=== PATIENT | male | born 1990 | race American Indian/Alaskan Native ===

== ENCOUNTER 2016-09-29 23:03 | Emergency (ER) | payer SELFPAY ==
[2016-09-29 23:43] VITALS: BP 152/86
== END 2016-09-29 23:55 | disposition left against medical advice (07) ==
LOC: ED 23:03
DX: R51 Headache (principal); M54.5 Low back pain; V49.9XXA Car occupant (driver) (passenger) injured in unspecified traffic accident, initial encounter; W22.11XA Striking against or struck by driver side automobile airbag, initial encounter; Y93.89 Activity, other specified; Y99.9 Unspecified external cause status; Y92.410 Unspecified street and highway as the place of occurrence of the external cause; Z53.21 Procedure and treatment not carried out due to patient leaving prior to being seen by health care provider